=== PATIENT | male | born 1965 | race Caucasian/White ===

== ENCOUNTER 2018-12-23 11:07 | Emergency (ER) | payer OTHER ==
[~2018-12-23] VITALS: Ht 172.7 cm; Wt 92.5 kg
--- NOTE | 2018-12-23 11:15 | NUR ---
PT TRIAGED AND SENT TO ER LOBBY
[2018-12-23 11:22] VITALS: BP 133/88
--- NOTE | 2018-12-23 12:22 | NUR ---
PT AMBULATES TO BED 5
--- NOTE | 2018-12-23 12:40 | NUR ---
BIB SELF. AAO X4. C/O LUMP TO R INNER BUTTOCKS. LUMP IS CLOSED, NO REDNESS, NO DRAINAGE NOTED. PT STATES 07/05. DIFFICULTY AMBULATING AND SITTING DOWN. HOB UP. BED SIDE RAILS UP X1. ON LOW BED POSITION, LOCKED. ER MADE AWARE OF PT STATUS.
[2018-12-23] MEDS ORDERED: KETOROLAC 60 MG/2 ML VIAL IM ONE (13:05)
[2018-12-23] MEDS ORDERED: CLINDAMYCIN 600 MG/4 ML VIAL IM ONE (13:05)
[2018-12-23 15:02] VITALS: BP 141/70
--- NOTE | 2018-12-23 15:02 | NUR ---
Patient discharged with v/s stable. Written and verbal after care instructions given and explained. Patient alert, oriented and verbalized understanding of instructions. Ambulatory with steady gait. All questions addressed prior to discharge. ID band removed. Patient advised to follow up with PMD. Rx of Tramadol, Clindamycin, Anusol given. Patient educated on indication of medication including possible reaction and side effects. Opportunity to ask questions provided and answered.
== END 2018-12-23 15:02 | disposition home or self-care (01) ==
LOC: MED 11:07
DX: K62.89 Other specified diseases of anus and rectum (principal); K64.9 Unspecified hemorrhoids; K60.2 Anal fissure, unspecified
CPT/HCPCS: 96372; 99283; J1885; J3490